=== PATIENT | male | born 1970 | race African-American/Black ===

== ENCOUNTER 2018-02-16 03:58 | Inpatient (IN) | payer OTHER ==
[~2018-02-16] VITALS: Ht 165.1 cm; Wt 91.6 kg
--- NOTE | ~2018-02-16 | EKG ---
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
--- NOTE | ~2018-02-16 | PATH ---
[facility] [address] [place] [address] PATHOLOGY RPT PROCEDURE Name: SOLOMON ECHEVERRIA Room #: 220-P ADM IN M.R.#: [id number] Admission: 02/16/18 Date of : 74 Discharge: Report #: [id number] Path Case #: [id number] [facility] Accession Number: [id number] . 01 Material submitted: . GALLBLADDER . 01 Clinical history: . Biliary dyskinesia, esophagitis . 02 Diagnosis: Gallbladder, cholecystectomy: - Mild chronic cholecystitis. - Cholesterolosis. (IUV:pit; 02/21/2018) QTP/02/21/2018 . 02 Electronically signed: . Giulia Farfan MD, Pathologist NPI- [id number] . 01 Gross description: . The specimen is received in formalin, labeled "Solomon Echeverria, gallbladder" and consists of a previously opened green and shiny gallbladder measuring 8.0 x 3.8 x 0.6 cm. The mucosa is green and velvety with focal yellow highlights in the neck aspect. The wall averages 0.2 cm thick. No calculi or mass lesions are identified. Senior Data Architect sections are submitted in A1. (SDY; 02/20/2018) SYU/SYU . 02 Pathologist provided ICD-10: K81.1, K82.4 . 02 CPT . 395119 Performed at: [address], [place] [id number] MD Leroy Dobson MD Phone: [phone] Performed at: [address] [id number] MD Giulia Farfan MD Phone: [phone]
--- NOTE | ~2018-02-16 | HC ---
[facility] [place] [address] CONSULTATION Name: SEAN ECHEVERRIA Room #: 428-P [facility] IN .R.#: [id number] Admission: 02/16/18 Attend Phys: Carlos Bryant MD Discharge: Date of : 74 Report #: [id number] THIS REPORT FOR: //name// CC: FAM unknown Carlos Bryant DATE OF SERVICE: 02/16/2018 REFERRING PROVIDER: Carlos Bryant MD REASON FOR CONSULT: Abdominal pain. HISTORY OF PRESENT ILLNESS: The patient is a 47-year-old male who presented to the Emergency Room with a longstanding history of GERD and a 24-hour history of epigastric to right upper quadrant abdominal pain and nausea. The patient remembers eating fish with near immediate onset of symptoms. Workup in the Emergency Room has been largely negative with the exception of his CT scan showing marked thickening of the distal esophagus as well as fluid filled loops of small bowel and mesenteric adenopathy. He did have mild ascites on an ultrasound with a normal gallbladder visualization. The patient has therefore been admitted and I am asked to evaluate from a surgical standpoint. PAST MEDICAL HISTORY: Hypertension, depression, asthma and GERD. HOME MEDICATIONS: Clonazepam, Prozac and Zantac. He recently quit taking Seroquel. ALLERGIES: No known drug allergies. SOCIAL HISTORY: The patient is a former smoker, states that he quit greater than 1 year ago. Does drink alcohol, one glass of wine a couple times a week and denies illicit drug use. FAMILY HISTORY: Reviewed and noncontributory. REVIEW OF SYSTEMS: GENERAL: The patient denies nocturnal fevers or chills. HEENT: No change in vision, change in hearing. NECK: No swelling or difficulty swallowing. HEART: No chest pain or palpitations. LUNGS: No cough or shortness of breath. ABDOMEN: Abdominal pain with nausea. GENITOURINARY: No dysuria or hematuria. ENDOCRINE: No polyuria, polydipsia. HEMATOLOGIC: No history of bleeding or easy bruising. EXTREMITIES: No history weakness or limited range of motion. [facility] [address] [address] CONSULTATION Name: SEAN ECHEVERRIA Room #: 428-P [facility] IN M.R.#: [id number] Admission: 02/16/18 Attend Phys: Carlos Bryant MD Discharge: Date of : 74 Report #: [id number] NEUROLOGIC: No history of syncope or near syncopal episodes. SKIN AND INTEGUMENT: No history of abnormal lesions or moles. PSYCHIATRIC: No history of anxiety, but he does have a history of depression. PHYSICAL EXAMINATION: VITAL SIGNS: Temperature is 98.9, pulse 60, respirations 18, blood pressure 116/87. He is 5 feet 5 inches tall and weighs 202 pounds. GENERAL: Alert, in no acute distress. HEENT: Normocephalic, atraumatic. Pupils equal, round, reactive to light. NECK: Supple without lymphadenopathy. Trachea midline. HEART: Regular rate and rhythm. LUNGS: Clear to auscultation bilaterally. ABDOMEN: Soft, nondistended. He is tender to palpation in the epigastrium, worse than the right upper quadrant, but did not have any guarding, rebound or peritoneal signs or symptoms. GENITOURINARY: Normal external male genitalia. EXTREMITIES: No clubbing, cyanosis or edema. NEUROLOGIC: Cranial nerves 2-12 are grossly intact. PSYCHIATRIC: Normal mood and affect. SKIN AND INTEGUMENT: No abnormal lesions or moles. LABORATORY AND X-RAY DATA: CBC shows white blood cell count of 6.2 thousand, hemoglobin 13.6, platelets 227,000. Creatinine 1.1. Liver function enzymes are all normal. Lipase is normal at 144. Chest x-ray shows no cardiopulmonary process. Ultrasound of the abdomen shows questionable mild right upper quadrant ascites, but a normal gallbladder. CT scan of the abdomen and pelvis as per HPI shows thickened distal esophagus consistent with esophagitis. He also has fluid filled loops of small bowel and mesenteric adenitis. ASSESSMENT AND PLAN: A 47-year-old male with acute onset epigastric to right upper quadrant abdominal pain and a negative workup thus far except for findings of esophagitis and possible enteritis. The patient has been admitted and we will keep him largely n.p.o. with clear liquids being okay and IV fluid rehydration. I will ask Gastroenterology to evaluate for the possible esophagitis and we will initiate PPI therapy and Carafate as well at this time. I will also obtain a PIPIDA scan to evaluate for gallbladder dysfunction. I sincerely appreciate this consult. I will follow along and leave any further recommendations in the patient's chart as appropriate. <ELECTRONICALLY SIGNED> By: Yesika Irwin MD, FACS 02/18/18 1659 1122 2256 Yesika Irwin MD, FACS /nt
--- NOTE | ~2018-02-16 | EKG ---
[address] [address] ELECTROCARDIOGRAM REPORT Name: DARLYN ECHEVERRIANE Room #: 428-P ADM IN M.R.#: [id number] Admission: 02/16/18 Attend Phys: Carlos Bryant MD Discharge: Date of : 74 Report #: [id number] THIS REPORT FOR: //name// [facility] ED Test Date: 2018-02-16 Test Time: 04:13:55 Pat Name: SEAN ECHEVERRIA Department: Room: Gender: M Superintendent Operating: melinda : 1970 Requested By: Arsen Javier Order Number: [id number] MD: Bill Hope Measurements Intervals [place] Rate: 71 P: 10 WI: 156 QRS: 17 QRSD: 99 T: -9 QT: 374 QTc: 407 Interpretive Statements Sinus rhythm Nonspecific T abnormalities, inferior leads No previous ECG available for comparison Electronically Signed On 02-16-2018 11:39:08 CDT by Bill Hope [email or web address] <ELECTRONICALLY SIGNED> By: Bill Hope MD 02/16/18 1139 0413 041 Bill Hope MD /ANGELLA
--- NOTE | ~2018-02-16 | HC ---
[facility] [place] [address] CONSULTATION Name: SEAN ECHEVERRIA Room #: 220-P [facility] IN M.R.#: [id number] Admission: 02/16/18 Attend Phys: Carlos Bryant MD Discharge: Date of : 74 Report #: [id number] THIS REPORT FOR: //name// CC: FAM unknown Carlos Bryant HISTORY OF PRESENT ILLNESS: The patient is a 47-year-old black male who I have been asked to see for further evaluation of right upper quadrant abdominal pain, which is postprandial, which began with a fatty meal and was associated with radiation to his right scapula as well as his right and left shoulder. This pain has been recurrent with p.o. ingestion and he has limited his diet accordingly to avoid the pain. PAST MEDICAL HISTORY: Notable for depression, anxiety, obesity, gastroesophageal reflux, peptic ulcer disease, hypertension. MEDICATIONS: Include clonazepam, fluoxetine and ranitidine. SOCIAL HISTORY: Past smoking history. No drugs. He drinks alcohol socially. REVIEW OF SYSTEMS: Negative for weight loss, weakness or fatigue. Denies head, eyes, ears, nose or throat complaints. Denies chest pain, chest palpitation, chest pressure, cough, shortness of breath, wheezing, genitourinary, musculoskeletal or neuropsychiatric complaints. PHYSICAL EXAMINATION: VITAL SIGNS: Afebrile. Vital signs stable. HEENT: Nonicteric. NECK: No JVD, thyromegaly or bruits. CARDIOVASCULAR: Regular. LUNGS: Clear. ABDOMEN: Soft, nondistended, nontender except for in the right upper quadrant, particularly with deep inspiration. No rebound or guarding. No stigmata of chronic liver disease. No abnormal masses or bruits. EXTREMITIES: No clubbing, cyanosis or edema. NEUROLOGIC: Not performed. RECTAL: Deferred. PERTINENT LABORATORY DATA: Include white count 6.2, hemoglobin 13.6, platelet count 227. INR not done. Chemistry, venous bicarbonate 20, glucose 114, calcium 8.4. AST and ALT are normal. Alkaline phosphatase normal. Bilirubin normal. Amylase and lipase are normal. Imaging studies reveal abdominal ultrasound without stone or evidence of cholecystitis or dilated ducts. CT scan notable for abdomen and pelvis, thickened esophagus, possibly secondary to reflux, some fluid filled small bowel loops may be representing a mild ileus. No obstruction, some small lymphadenopathy and nonvisualization of the appendix. [address] [address] CONSULTATION Name: SEAN ECHEVERRIA Room #: 220-P ADM IN M.R.#: [id number] Admission: 02/16/18 Attend Phys: Carlos Bryant MD Discharge: Date of : 74 Report #: [id number] In summary, the patient has biliary colic, most likely secondary to acalculous cholecystitis. We will proceed with the CCK PIPIDA scan, especially looking for symptom correlation and reduced ejection fraction. I do agree with the surgical consult. If indeed his PIPIDA scan is positive, upper endoscopy would not be necessary. I do agree with PPI therapy empirically. We will follow up. <ELECTRONICALLY SIGNED> By: Nathan Finnegan MD 02/20/18 1013 1005 2214 Palmer Thomas MD /nt
--- NOTE | ~2018-02-16 | O ---
[facility] [place] [address] OPERATIVE REPORT Name: SEAN ECHEVERRIA Room #: 220-P [facility] IN M.R.#: [id number] Admission: 02/16/18 Attend Phys: Carlos Bryant MD Discharge: Date of : 74 Report #: [id number] THIS REPORT FOR: //name// CC: FAM unknown Carlos Bryant DATE OF SERVICE: 02/20/2018 PREOPERATIVE DIAGNOSES: 1. Biliary dyskinesia. 2. Esophageal thickening and inflammation. POSTOPERATIVE DIAGNOSES: 1. Chronic cholecystitis with cholesterolosis. 2. Normal esophageal tissues. PROCEDURES PERFORMED: 1. Laparoscopic cholecystectomy with intraoperative cholangiogram. 2. Thorough esophagogastroduodenoscopy (EGD). SURGEON: Yesika Irwin MD MUFFLER TENDER: TANVIR Lockett. ANESTHESIA: General endotracheal anesthesia. ESTIMATED BLOOD LOSS: Minimal (less than 5 mL). COMPLICATIONS: None appreciated. SPECIMENS: Gallbladder to pathology. INDICATIONS: The patient is a 47-year-old male who presented with worsening epigastric right upper quadrant abdominal pain and nausea. The patient was evaluated with a CT scan of the abdomen and pelvis as well as ultrasound of the abdomen, which showed no overt findings other than a thickened distal esophagus. The patient then underwent a PIPIDA scan, which showed decreased ejection fraction to 16% with reproduction of symptoms upon injection of cholecystokinin and as such, indication was for cholecystectomy today. As the patient was to be under a general anesthesia, an EGD was performed concurrently to evaluate the upper GI tract with no evidence of esophageal or gastric inflammation whatsoever. PROCEDURE: After explaining the risks, benefits and alternatives of the procedure with the patient in detail in the preoperative holding area and obtaining written consent, the patient was brought to the operating room and [facility] [address] [place] [address] OPERATIVE REPORT Name: SEAN ECHEVERRIA Room #: 220-P [facility] IN ..#: [id number] Admission: 02/16/18 Attend Phys: Carlos Bryant MD Discharge: Date of : 74 Report #: [id number] placed supine on the operating room table. After conducting a thorough timeout procedure, verifying correct patient and procedure, the patient was given general endotracheal anesthesia. Once adequate anesthesia was obtained, his SCDs were hooked up to pneumatic compression device. He was given a preoperative dose of antibiotics in line with the SCIP protocol. The patient's abdomen was then prepped and draped in standard surgical sterile fashion. I began the procedure by performing the EGD. The [place]wl[place] upper endoscope was used to intubate the oropharynx. This was traversed down a straight esophagus into the gastric lumen where the pylorus was identified and intubated. The scope was advanced to the second portion of the duodenum where slow careful withdrawal of the EGD scope showed no evidence of duodenitis, gastritis, esophagitis, mass lesions, or ulcerations. Retroflexion view of the scope within the gastric lumen showed no evidence of a hiatal hernia. The scope was withdrawn into the distal esophagus where it was thoroughly inspected and again saw no evidence of pathology whatsoever. There was no hyperemia, no cellular changes and the Z-line was identified and uninflamed. The EGD scope was used to fully desufflate the stomach, was removed, passed off the field and I sterilely scrubbed and entered the operative field for the cholecystectomy portion of the procedure. 5 mL of 0.5% Marcaine with epinephrine were used to anesthetize the skin in the supraumbilical location. A #15 bladed scalpel was used to create a 1-cm transverse skin incision at this location. An 11-mm Visiport was placed over 0 degree 5 mm laparoscope, which was reintroduced through this trocar. The entire abdomen was evaluated to ensure no injury upon entry. The laparoscope was changed to a 5-mm 30-degree laparoscope, which was reintroduced through this trocar. The entire abdomen was evaluated to ensure no injury upon entry. The patient was now placed in reverse Trendelenburg position with right side elevated and I proceeded to place three additional 5-mm trocars. One was placed in subxiphoid location and two were placed along the patient's right subcostal margin. All three additional 5-mm ports were placed under direct vision after anesthetizing the skin at each location with 5 mL of 0.5% Marcaine with epinephrine and I had created small skin nicks using #15 bladed scalpel. Using the inferolateral most port along the patient's right flank, the fundus of the gallbladder was grasped and retracted cephalad. Careful tedious dissection was undertaken down around the cholecystocystic junction using a combination of Harmonic scalpel and [place] dissector. Once I had attained a critical view, namely the cystic duct emanating from the infundibulum of the gallbladder and coursing the common bile duct as well as cystic artery running the surface of the gallbladder and I had created a window behind each, I transected the cystic artery nearest to the gallbladder side using Harmonic scalpel for hemostasis. A single clip was now placed along the cystic duct nearest to the gallbladder side and a small ductotomy was made just distal to this clip using EndoShears. This ductotomy was cannulated using the taut cholangiocatheter setup and an intraoperative cholangiogram was obtained. We had prompt opacification of a long spiraling cystic duct with both intra and extrahepatic bile ducts becoming opacified. There was antegrade flow of contrast into the duodenum with no evidence of filling defects or obstruction. The cholangiocatheter setup was now [facility] [address] [place] [address] OPERATIVE REPORT Name: SEAN ECHEVERRIA Room #: 220-P ADM IN M.R.#: [id number] Admission: 02/16/18 Attend Phys: Carlos Bryant MD Discharge: Date of : 74 Report #: [id number] removed, 3 clips were placed along the cystic duct nearest to the common bile duct side and it was transected above these clips using Harmonic scalpel to help seal the duct closed. Further retraction at the infundibulum of the gallbladder in cephalad direction allowed me to elevate the gallbladder off of the liver bed using Harmonic scalpel for hemostasis. Once completely detached, the laparoscope was removed, changed to the right midclavicular 5-mm trocar, and the EndoCatch bag was placed in supraumbilical trocar. The specimen was placed within the EndoCatch bag and the pursestring suture was drawn. The specimen was then removed from the abdomen under direct vision with ease. I then closed the supraumbilical fascial incision using 0 PDS suture on a Sandoval-Mora suture passer device and tied this down under direct vision to ensure I did not catch a loop of bowel or omentum in the suture repair. One final evaluation of the gallbladder fossa showed complete hemostasis with no bleeding whatsoever. We had no spillage. The three clips were seated nicely on the cystic duct stump remnant. The abdomen was fully desufflated, all remaining trocars were removed under direct vision. A 4-0 Monocryl was used in a standard subcuticular fashion for all skin incisions and Dermabond glue was applied to all skin wounds. The corner of the resection specimen that had been removed was trimmed away as the gallbladder was on the back table showing significant findings of a thick inspissated bile and sludge as well as marked cholesterolosis consistent with chronic cholecystitis. At the end of the procedure, all instrument, needle and sponge counts were correct. The patient tolerated the procedure without incident, was awakened in the operating room and transitioned to the recovery room in stable condition with no apparent complications. <ELECTRONICALLY SIGNED> By: Yesika Irwin MD, FACS 02/21/18 0738 1710 1842 Yesika Irwin MD, FACS /nt
[~2018-02-16 03:58] MED LIST: CLONAZEPAM 1 MG1 M1; FLEXERIL PO; NAPROSYN500 MG PO; NORCO 5-325 TA1 EACH PO; PROZAC 10 MG CA10 MG; SEROQUEL 100 M100 M1
[2018-02-16 04:05] VITALS: BP 138/102
[2018-02-16] MEDS ORDERED: ZANTAC 150MG T150 MG PO (04:10)
[2018-02-16 04:41] LABS: ABSOLUTE NEUTROPHILS 3.4 thou/uL (1.4-8.2); BASOPHILS 0.5 % (0.0-2.0); EOSINOPHILS 2.3 % (0.0-3.0); HEMATOCRIT 41.1 % (42.0-52.0); HEMOGLOBIN 13.6 gm/dL (14.0-18.0); LYMPHOCYTES 33.5 % (24.0-44.0); MCH 28.3 pg (26.0-34.0); MCHC 33.1 g/dL (28.0-37.0); MCV 85.5 fL (80.0-100.0); MONOCYTES 8.1 % (1.0-8.0); PLATELET COUNT 227 thou/uL (150-400); POLYS 55.6 % (36.0-66.0); RBC 4.81 mil/uL (4.50-6.00); WBC 6.2 thou/uL (4.0-11.0)
[2018-02-16 04:49] LABS: ANION GAP 8 mmol/L (7-16); BUN 20 mg/dL (7-18); CALCIUM 8.4 mg/dL (8.5-10.1); CHLORIDE 107 mmol/L (98-107); CO2 27 mmol/L (21-32); CREATININE 1.1 mg/dL (0.7-1.3); GLUCOSE 114 mg/dL (74-106); POTASSIUM 3.5 mmol/L (3.5-5.1); SODIUM 142 mmol/L (136-145)
[2018-02-16 04:57] LABS: ALBUMIN 3.4 g/dL (3.4-5.0); LIPASE 144 U/L (73-393); SGOT 16 U/L (15-37); SGPT 24 U/L (30-65); TOTAL BILIRUBIN 0.4 mg/dL (<0.1-1.0); TOTAL PROTEIN 6.8 g/dL (6.4-8.2); TROPONIN-I < 0.04 ng/mL (<0.06)
[2018-02-16] MEDS ORDERED: NORCO 5-325 TA1 EACH PO (05:59)
[2018-02-16] MEDS ORDERED: PEPCID20 MG PO (05:59)
[2018-02-16] MEDS ORDERED: CIPROFLOXACIN500 M1 PO (05:59)
[2018-02-16] MEDS ORDERED: FLAGYL500 MG PO (05:59)
[2018-02-16 06:19] VITALS: BP 139/91
[2018-02-16 07:22] VITALS: BP 127/90
[2018-02-16 15:47] VITALS: BP 116/87
[2018-02-16 20:00] VITALS: BP 112/68
[2018-02-17 04:00] VITALS: BP 127/91
[2018-02-17 04:59] LABS: HEMATOCRIT 41.5 % (42.0-52.0); HEMOGLOBIN 13.9 gm/dL (14.0-18.0); MCH 28.6 pg (26.0-34.0); MCHC 33.4 g/dL (28.0-37.0); MCV 85.6 fL (80.0-100.0); RBC 4.85 mil/uL (4.50-6.00); RDW 14.1 % (10.5-14.5)
[2018-02-17 05:10] LABS: CALCIUM 8.4 mg/dL (8.5-10.1); CREATININE 1.1 mg/dL (0.7-1.3); POTASSIUM 3.4 mmol/L (3.5-5.1)
[2018-02-17 08:24] LABS: MAGNESIUM 1.9 mg/dL (1.8-2.4)
[2018-02-17 08:34] VITALS: BP 117/85
[2018-02-17 16:01] VITALS: BP 125/81
[2018-02-17 21:00] VITALS: BP 124/82; BP 128/78
[2018-02-18 06:04] LABS: ABSOLUTE NEUTROPHILS 2.8 thou/uL (1.4-8.2); BASOPHILS 0.5 % (0.0-2.0); EOSINOPHILS 1.7 % (0.0-3.0); HEMATOCRIT 40.4 % (42.0-52.0); HEMOGLOBIN 13.6 gm/dL (14.0-18.0); LYMPHOCYTES 31.7 % (24.0-44.0); MCH 28.7 pg (26.0-34.0); MCHC 33.6 g/dL (28.0-37.0); MCV 85.5 fL (80.0-100.0); MONOCYTES 9.1 % (1.0-8.0); PLATELET COUNT 217 thou/uL (150-400); RBC 4.73 mil/uL (4.50-6.00); RDW 13.9 % (10.5-14.5); WBC 4.9 thou/uL (4.0-11.0)
[2018-02-18 06:14] LABS: ALBUMIN 3.1 g/dL (3.4-5.0); CALCIUM 8.2 mg/dL (8.5-10.1); CREATININE 1.1 mg/dL (0.7-1.3); DIRECT BILIRUBIN 0.1 mg/dL (<0.1-0.3); MAGNESIUM 2.1 mg/dL (1.8-2.4); POTASSIUM 3.6 mmol/L (3.5-5.1); TOTAL BILIRUBIN 0.6 mg/dL (<0.1-1.0); TOTAL PROTEIN 6.6 g/dL (6.4-8.2)
[2018-02-18 15:12] VITALS: BP 111/77
[2018-02-18 19:27] VITALS: BP 126/82; BP 129/82
[2018-02-19 03:51] VITALS: BP 122/83
[2018-02-19 05:46] LABS: ABSOLUTE NEUTROPHILS 2.1 thou/uL (1.4-8.2); BASOPHILS 0.5 % (0.0-2.0); EOSINOPHILS 2.8 % (0.0-3.0); HEMATOCRIT 39.4 % (42.0-52.0); HEMOGLOBIN 13.3 gm/dL (14.0-18.0); LYMPHOCYTES 36.1 % (24.0-44.0); MCH 28.9 pg (26.0-34.0); MCHC 33.8 g/dL (28.0-37.0); MCV 85.3 fL (80.0-100.0); MONOCYTES 10.8 % (1.0-8.0); PLATELET COUNT 243 thou/uL (150-400); POLYS 49.8 % (36.0-66.0); RBC 4.62 mil/uL (4.50-6.00); RDW 13.9 % (10.5-14.5); WBC 4.3 thou/uL (4.0-11.0)
[2018-02-19 06:03] LABS: CALCIUM 8.4 mg/dL (8.5-10.1); CREATININE 1.2 mg/dL (0.7-1.3); POTASSIUM 3.8 mmol/L (3.5-5.1)
[2018-02-19 08:04] VITALS: BP 132/94
[2018-02-19 16:52] VITALS: BP 142/95
[2018-02-19 19:32] VITALS: BP 122/85
[2018-02-20 07:15] VITALS: BP 124/91
[2018-02-20 11:31] VITALS: BP 134/91
[2018-02-20 11:32] VITALS: BP 146/96
[2018-02-20 11:33] VITALS: BP 156/102; BP 158/103
[2018-02-20 11:35] VITALS: BP 146/99
[2018-02-20 20:00] VITALS: BP 109/74
[2018-02-21 04:38] LABS: URINE BILIRUBIN NEGATIVE (Negative); URINE BLOOD NEGATIVE (Negative); URINE CLARITY CLEAR; URINE COLOR YELLOW; URINE GLUCOSE-RANDOM* TRACE (Negative); URINE KETONES NEGATIVE (Negative); URINE LEUKOCYTES-REFLEX NEGATIVE (Negative); URINE NITRITE-REFLEX NEGATIVE (Negative); URINE PROTEIN (DIPSTICK) 1+ (Negative); URINE SPECIFIC GRAVITY 1.015 (1.005-1.035); URINE UROBILINOGEN 0.2 E.U./dl (0.2-1.0)
[2018-02-21 04:45] LABS: BACTERIA-REFLEX 1-9 Few /HPF (None Seen); CASTS None Seen /LPF (None Seen); CRYSTALS None Seen /LPF (None Seen); SQUAMOUS 0-3 Few /LPF (0-3); TRANSITIONAL EPITHEL CELL 0-3 Few /LPF (None Seen); URINE RBC None Seen /HPF (0-2); URINE WBC-REFLEX None Seen /HPF (0-5)
[2018-02-21 07:05] VITALS: BP 116/73
[2018-02-21 07:16] LABS: ABSOLUTE NEUTROPHILS 3.6 thou/uL (1.4-8.2); BASOPHILS 0.3 % (0.0-2.0); EOSINOPHILS 0.7 % (0.0-3.0); HEMATOCRIT 40.8 % (42.0-52.0); HEMOGLOBIN 13.6 gm/dL (14.0-18.0); LYMPHOCYTES 29.6 % (24.0-44.0); MCH 28.2 pg (26.0-34.0); MCHC 33.2 g/dL (28.0-37.0); MCV 84.9 fL (80.0-100.0); MONOCYTES 9.2 % (1.0-8.0); PLATELET COUNT 259 thou/uL (150-400); POLYS 60.2 % (36.0-66.0); RDW 13.8 % (10.5-14.5); WBC 5.9 thou/uL (4.0-11.0)
[2018-02-21 07:25] LABS: CALCIUM 8.6 mg/dL (8.5-10.1); CREATININE 1.3 mg/dL (0.7-1.3); POTASSIUM 3.5 mmol/L (3.5-5.1)
[2018-02-21 20:10] VITALS: BP 120/86
[2018-02-22 08:01] VITALS: BP 156/102
[2018-02-22] MEDS ORDERED: HYDROCODON-ACE1 EAC7 PO (14:24)
[2018-02-22] MEDS ORDERED: PROTONIX 20 MG20 MG PO (14:24)
[2018-02-22] MEDS ORDERED: CARAFATE 11 GM/10 M1 PO (14:24)
[2018-02-22] MEDS ORDERED: FLOMAX0.4 MG PO (14:24)
[2018-02-22 14:35] VITALS: BP 156/102
== END 2018-02-22 14:53 | disposition home or self-care (01) | DRG 418 ==
LOC: ER 03:58 → 4E 06:22 → EROBS 06:22 → 4E 07:29 → SICU 02-19 16:31
PROVIDERS: Emergency Medicine; Hospitalist; Nurse Practitioner Acute Care; Surgery
PROC: 0FT44ZZ Resection of Gallbladder, Percutaneous Endoscopic Approach (ICD-10-PCS; principal; 2018-02-20)
PROC: BF121ZZ Fluoroscopy of Gallbladder using Low Osmolar Contrast (ICD-10-PCS; principal; 2018-02-20)
DX: K80.44 Calculus of bile duct with chronic cholecystitis without obstruction (principal); E44.1 Mild protein-calorie malnutrition; J98.11 Atelectasis; K20.9 Esophagitis, unspecified; K82.8 Other specified diseases of gallbladder; I10 Essential (primary) hypertension; J45.909 Unspecified asthma, uncomplicated; F32.9 Major depressive disorder, single episode, unspecified; F41.9 Anxiety disorder, unspecified; E66.9 Obesity, unspecified; K21.9 Gastro-esophageal reflux disease without esophagitis; R73.03 Prediabetes; E86.0 Dehydration; R13.10 Dysphagia, unspecified; I88.0 Nonspecific mesenteric lymphadenitis; R33.9 Retention of urine, unspecified; Z79.899 Other long term (current) drug therapy; Z87.891 Personal history of nicotine dependence; Z68.33 Body mass index [BMI] 33.0-33.9, adult; Z87.11 Personal history of peptic ulcer disease
CPT/HCPCS: 10084; 15002; 50010; 50101; 50249; 50411; 50555; 50558; 50962; 51975; 52265; 53307; 54022; 54118; 55245; 55317; 56462; 56525; 56526; 62110; 62900; 70005

== ENCOUNTER 2018-02-26 22:22 | Emergency (ER) | payer OTHER ==
[~2018-02-26] VITALS: Ht 165.1 cm; Wt 91.6 kg
[~2018-02-26 22:22] MED LIST changes: +CARAFATE 11 GM/10 M1 PO; +CIPROFLOXACIN500 M1 PO; +FLAGYL500 MG PO; +FLOMAX0.4 MG PO; +HYDROCODON-ACE1 EAC7 PO; +PEPCID20 MG PO; +PROTONIX 20 MG20 MG PO; +ZANTAC 150MG T150 MG PO
[2018-02-26 22:51] LABS: ABSOLUTE NEUTROPHILS 2.2 thou/uL (1.4-8.2); BASOPHILS 0.7 % (0.0-2.0); EOSINOPHILS 2.3 % (0.0-3.0); HEMATOCRIT 41.8 % (42.0-52.0); HEMOGLOBIN 13.8 gm/dL (14.0-18.0); LYMPHOCYTES 40.4 % (24.0-44.0); MCH 28.4 pg (26.0-34.0); MCHC 33.1 g/dL (28.0-37.0); MCV 85.6 fL (80.0-100.0); MONOCYTES 10.1 % (1.0-8.0); PLATELET COUNT 257 thou/uL (150-400); POLYS 46.5 % (36.0-66.0); RBC 4.88 mil/uL (4.50-6.00); RDW 13.8 % (10.5-14.5); WBC 4.7 thou/uL (4.0-11.0)
[2018-02-26 22:57] LABS: CALCIUM 8.9 mg/dL (8.5-10.1); CREATININE 1.1 mg/dL (0.7-1.3); POTASSIUM 3.4 mmol/L (3.5-5.1)
[2018-02-26 23:03] LABS: ALBUMIN 3.4 g/dL (3.4-5.0); TOTAL BILIRUBIN 0.3 mg/dL (<0.1-1.0); TOTAL PROTEIN 7.1 g/dL (6.4-8.2)
[2018-02-26 23:26] LABS: URINE BILIRUBIN NEGATIVE (Negative); URINE BLOOD NEGATIVE (Negative); URINE CLARITY CLEAR; URINE COLOR YELLOW; URINE GLUCOSE-RANDOM* NEGATIVE (Negative); URINE KETONES NEGATIVE (Negative); URINE LEUKOCYTES-REFLEX NEGATIVE (Negative); URINE NITRITE-REFLEX NEGATIVE (Negative); URINE PROTEIN (DIPSTICK) NEGATIVE (Negative); URINE UROBILINOGEN 0.2 E.U./dl (0.2-1.0)
[2018-02-27] MEDS ORDERED: HYDROCODONE-AP1 EAC6 PO (00:33)
== END 2018-02-27 00:59 | disposition home or self-care (01) ==
LOC: ER 22:22
PROVIDERS: Physician Assistant
DX: S39.81XA Other specified injuries of abdomen, initial encounter (principal); R33.9 Retention of urine, unspecified; I10 Essential (primary) hypertension; J45.909 Unspecified asthma, uncomplicated; F32.9 Major depressive disorder, single episode, unspecified; Z87.891 Personal history of nicotine dependence; Z90.49 Acquired absence of other specified parts of digestive tract; W19.XXXA Unspecified fall, initial encounter; Y93.89 Activity, other specified; Y92.89 Other specified places as the place of occurrence of the external cause; Y99.8 Other external cause status

== ENCOUNTER 2018-04-15 03:17 | Emergency (ER) | payer OTHER ==
[~2018-04-15] VITALS: Ht 165.1 cm; Wt 90.7 kg
--- NOTE | ~2018-04-15 | EKG ---
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: melinda : 1970 Requested By: Shelly Nielson Order Number: [id number] MD: Michael Taveras Measurements Intervals [place] Rate: 61 P: 14 OK: 155 QRS: 13 QRSD: 97 T: -12 QT: 405 QTc: 408 Interpretive Statements Sinus rhythm Borderline T abnormalities, inferior leads Compared to ECG 02/17/2018 13:34:55 No significant changes Electronically Signed On 04-15-2018 8:45:59 CDT by Michael Taveras [email or web address] <ELECTRONICALLY SIGNED> By: Michael Taveras MD, [facility] 04/15/18 0845 0542 0542 Michael Taveras MD, FACC /EPI
--- NOTE | ~2018-04-15 | EKG ---
[place] [address] [facility] [place] [address] ELECTROCARDIOGRAM REPORT Name: SEAN ECHEVERRIA Room #: DEP Sunni#: [id number] Admission: 04/15/18 Attend Phys: Discharge: 04/15/18 Date of : 74 Report #: [id number] THIS REPORT FOR: //name// [facility] ED Test Date: 2018-04-15 Test Time: 03:37:41 Pat Name: ESAN ECHEVERRIA Department: Room: Gender: Rn Renal: Irena FLOREZ : 1970 Requested By: Shelly Nielson Order Number: [id number] MD: Michael Taveras Measurements Intervals [place] Rate: 72 P: 20 UT: 158 QRS: 22 QRSD: 95 T: -1 QT: 382 QTc: 419 Interpretive Statements Sinus rhythm Borderline T abnormalities, inferior leads Compared to ECG 02/17/2018 13:34:55 No significant changes Electronically Signed On 04-15-2018 8:45:46 CDT by Michael Taveras [email or web address] <ELECTRONICALLY SIGNED> By: Michael Taveras MD, [facility] 04/15/18 0845 0337 6 Michael Taveras MD, FACC /EPI
[~2018-04-15 03:17] MED LIST changes: +HYDROCODONE-AP1 EAC6 PO
[2018-04-15 04:04] LABS: ABSOLUTE NEUTROPHILS 2.7 thou/uL (1.4-8.2); BASOPHILS 0.9 % (0.0-2.0); EOSINOPHILS 1.6 % (0.0-3.0); HEMATOCRIT 40.2 % (42.0-52.0); HEMOGLOBIN 13.5 gm/dL (14.0-18.0); LYMPHOCYTES 41.8 % (24.0-44.0); MCH 28.7 pg (26.0-34.0); MCHC 33.7 g/dL (28.0-37.0); MCV 85.3 fL (80.0-100.0); MONOCYTES 9.2 % (1.0-8.0); PLATELET COUNT 210 thou/uL (150-400); POLYS 46.5 % (36.0-66.0); RBC 4.72 mil/uL (4.50-6.00); RDW 13.7 % (10.5-14.5); WBC 5.9 thou/uL (4.0-11.0)
[2018-04-15 04:10] LABS: ANION GAP 10 mmol/L (7-16); BUN 13 mg/dL (7-18); CALCIUM 8.5 mg/dL (8.5-10.1); CHLORIDE 106 mmol/L (98-107); CO2 26 mmol/L (21-32); GLUCOSE 141 mg/dL (74-106); POTASSIUM 3.6 mmol/L (3.5-5.1); SODIUM 142 mmol/L (136-145)
[2018-04-15 04:19] LABS: TROPONIN-I <0.06 ng/mL (<0.06)
[2018-04-15] MEDS ORDERED: IBUPROFEN 800800 MG PO (05:17)
== END 2018-04-15 06:29 | disposition home or self-care (01) ==
LOC: ER 03:17
PROVIDERS: Emergency Medicine
DX: G44.209 Tension-type headache, unspecified, not intractable (principal); M54.12 Radiculopathy, cervical region; R20.2 Paresthesia of skin; I10 Essential (primary) hypertension; J45.909 Unspecified asthma, uncomplicated; F32.9 Major depressive disorder, single episode, unspecified; E11.9 Type 2 diabetes mellitus without complications; G89.29 Other chronic pain; M25.562 Pain in left knee; M25.561 Pain in right knee; Z87.891 Personal history of nicotine dependence

== ENCOUNTER 2018-05-07 20:26 | Emergency (ER) | payer OTHER ==
[~2018-05-07] VITALS: Ht 165.1 cm; Wt 90.7 kg
[~2018-05-07 20:26] MED LIST changes: +IBUPROFEN 800800 MG PO
[2018-05-07] MEDS ORDERED: ELOCON15 GM TOP (21:21)
[2018-05-07] MEDS ORDERED: HYDROXYZINE HCL25 M1 PO (21:21)
== END 2018-05-07 21:39 | disposition home or self-care (01) ==
LOC: ER 20:26
DX: L25.9 Unspecified contact dermatitis, unspecified cause (principal); I10 Essential (primary) hypertension; J45.909 Unspecified asthma, uncomplicated; F32.9 Major depressive disorder, single episode, unspecified; Z87.891 Personal history of nicotine dependence

== ENCOUNTER 2018-06-15 05:12 | Emergency (ER) | payer OTHER ==
[~2018-06-15] VITALS: Ht 165.1 cm; Wt 96.2 kg
[~2018-06-15 05:12] MED LIST changes: +ELOCON15 GM TOP; +HYDROXYZINE HCL25 M1 PO
[2018-06-15] MEDS ORDERED: NORCO 5-325 TA1 EACH PO (05:51)
[2018-06-15] MEDS ORDERED: LIDOCAINE VISC100 ML SWISH&SPIT (05:51)
== END 2018-06-15 06:19 | disposition home or self-care (01) ==
LOC: ER 05:12
DX: S02.5XXA Fracture of tooth (traumatic), initial encounter for closed fracture (principal); I10 Essential (primary) hypertension; J45.909 Unspecified asthma, uncomplicated; F32.9 Major depressive disorder, single episode, unspecified; Z87.891 Personal history of nicotine dependence; X58.XXXA Exposure to other specified factors, initial encounter; Y92.89 Other specified places as the place of occurrence of the external cause; Y93.89 Activity, other specified; Y99.8 Other external cause status

== ENCOUNTER 2018-06-24 23:29 | Emergency (ER) | payer OTHER ==
[~2018-06-24] VITALS: Ht 167.6 cm; Wt 96.2 kg
--- NOTE | ~2018-06-24 | EKG ---
[address] [address] ELECTROCARDIOGRAM REPORT Name: SEAN ECHEVERRIA Room #: DEP Sunni#: [id number] Admission: 06/24/18 Attend Phys: Discharge: 06/25/18 Date of : 74 Report #: [id number] THIS REPORT FOR: //name// [facility] ED Test Date: 2018-06-24 Test Time: 23:33:02 Pat Name: SEAN ECHEVERRIA Department: Room: Gender: M Spin Table Operator: RADHA : 1970 Requested By: Tu Parks Order Number: [id number] MD: Bill Hope Measurements Intervals [place] Rate: 76 P: 14 OR: 151 QRS: 15 QRSD: 102 T: -5 QT: 366 QTc: 412 Interpretive Statements Sinus rhythm Borderline T abnormalities, inferior leads Compared to ECG 04/15/2018 05:42:35 No significant changes Electronically Signed On 06-25-2018 9:55:15 CDT by Bill Hope [email or web address] <ELECTRONICALLY SIGNED> By: Bill Hope MD 06/25/18 0955 32 32 Bill Hope MD /ANGELLA
[~2018-06-24 23:29] MED LIST changes: +LIDOCAINE VISC100 ML SWISH&SPIT
[2018-06-25 00:01] LABS: ABSOLUTE NEUTROPHILS 3.4 thou/uL (1.4-8.2); BASOPHILS 0.8 % (0.0-2.0); EOSINOPHILS 1.4 % (0.0-3.0); HEMATOCRIT 41.6 % (42.0-52.0); HEMOGLOBIN 14.4 gm/dL (14.0-18.0); LYMPHOCYTES 34.7 % (24.0-44.0); MCH 29.1 pg (26.0-34.0); MCHC 34.7 g/dL (28.0-37.0); MCV 83.9 fL (80.0-100.0); PLATELET COUNT 234 thou/uL (150-400); POLYS 55.1 % (36.0-66.0); RBC 4.95 mil/uL (4.50-6.00); RDW 13.1 % (10.5-14.5); WBC 6.2 thou/uL (4.0-11.0)
[2018-06-25 00:04] LABS: ANION GAP 6 mmol/L (7-16); BUN 10 mg/dL (7-18); CALCIUM 8.8 mg/dL (8.5-10.1); CHLORIDE 102 mmol/L (98-107); CO2 29 mmol/L (21-32); CREATININE 1.2 mg/dL (0.7-1.3); POTASSIUM 3.4 mmol/L (3.5-5.1); SODIUM 137 mmol/L (136-145)
[2018-06-25 00:13] LABS: GLUCOSE 166 mg/dL (74-106); TROPONIN-I <0.06 ng/mL (<0.06)
[2018-06-25] MEDS ORDERED: PROZAC10 MG PO (00:49)
[2018-06-25] MEDS ORDERED: CLOZAPINE25 MG PO (00:49)
[2018-06-25] MEDS ORDERED: NEURONTIN 300300 M1 PO (00:50)
[2018-06-25] MEDS ORDERED: LISINOPRIL10 MG PO (00:50)
[2018-06-25] MEDS ORDERED: NITROGLYCERIN0.4 MG SUBLING (00:50)
[2018-06-25] MEDS ORDERED: PROTONIX40 M1 PO (00:50)
[2018-06-25] MEDS ORDERED: CARAFATE 1 GM TA1 G1 PO (00:50)
[2018-06-25] MEDS ORDERED: RANITIDINE HCL300 M1 PO (00:50)
== END 2018-06-25 03:51 | disposition home or self-care (01) ==
LOC: ER 23:29
PROVIDERS: Emergency Medicine
DX: R07.89 Other chest pain (principal); I10 Essential (primary) hypertension; J45.909 Unspecified asthma, uncomplicated; F32.9 Major depressive disorder, single episode, unspecified; Z87.891 Personal history of nicotine dependence

== ENCOUNTER 2018-07-09 20:26 | Emergency (ER) | payer OTHER ==
[~2018-07-09] VITALS: Ht 165.1 cm; Wt 96.2 kg
[~2018-07-09 20:26] MED LIST changes: +CARAFATE 1 GM TA1 G1 PO; +CLOZAPINE25 MG PO; +LISINOPRIL10 MG PO; +NEURONTIN 300300 M1 PO; +NITROGLYCERIN0.4 MG SUBLING; +PROTONIX40 M1 PO; +PROZAC10 MG PO; +RANITIDINE HCL300 M1 PO
[2018-07-09 23:41] LABS: ABSOLUTE NEUTROPHILS 2.9 thou/uL (1.4-8.2); BASOPHILS 0.8 % (0.0-2.0); EOSINOPHILS 2.1 % (0.0-3.0); HEMATOCRIT 40.6 % (42.0-52.0); HEMOGLOBIN 14.2 gm/dL (14.0-18.0); LYMPHOCYTES 39.6 % (24.0-44.0); MCH 29.5 pg (26.0-34.0); MCHC 35.1 g/dL (28.0-37.0); MCV 83.9 fL (80.0-100.0); MONOCYTES 8.2 % (1.0-8.0); PLATELET COUNT 219 thou/uL (150-400); POLYS 49.3 % (36.0-66.0); RBC 4.83 mil/uL (4.50-6.00); RDW 13.2 % (10.5-14.5); WBC 5.9 thou/uL (4.0-11.0)
[2018-07-09 23:48] LABS: ANION GAP 7 mmol/L (7-16); BUN 15 mg/dL (7-18); CALCIUM 8.5 mg/dL (8.5-10.1); CHLORIDE 105 mmol/L (98-107); CO2 30 mmol/L (21-32); GLUCOSE 131 mg/dL (74-106); POTASSIUM 3.8 mmol/L (3.5-5.1); SODIUM 142 mmol/L (136-145)
[2018-07-09 23:57] LABS: TROPONIN-I <0.06 ng/mL (<0.06)
[2018-07-10] MEDS ORDERED: AZITHROMYCIN 2250 MG PO (00:12)
== END 2018-07-10 00:36 | disposition home or self-care (01) ==
LOC: ER 20:26
PROVIDERS: Student in an Organized Health Care Education/Training Program
DX: J20.9 Acute bronchitis, unspecified (principal); E86.0 Dehydration; R33.9 Retention of urine, unspecified; R53.83 Other fatigue; I10 Essential (primary) hypertension; F32.9 Major depressive disorder, single episode, unspecified; J45.909 Unspecified asthma, uncomplicated; Z87.891 Personal history of nicotine dependence

== ENCOUNTER 2019-02-20 02:06 | Emergency (ER) | payer OTHER ==
[~2019-02-20] VITALS: Ht 165.1 cm; Wt 104.3 kg
[~2019-02-20 02:06] MED LIST changes: +AZITHROMYCIN 2250 MG PO
[2019-02-20 02:47] LABS: ABSOLUTE NEUTROPHILS 3.4 thou/uL (1.4-8.2); BASOPHILS 0.6 % (0.0-2.0); EOSINOPHILS 1.7 % (0.0-3.0); HEMATOCRIT 42.7 % (42.0-52.0); HEMOGLOBIN 14.2 gm/dL (14.0-18.0); LYMPHOCYTES 33.4 % (24.0-44.0); MCH 28.1 pg (26.0-34.0); MCHC 33.2 g/dL (28.0-37.0); MCV 84.6 fL (80.0-100.0); MONOCYTES 8.4 % (1.0-8.0); PLATELET COUNT 230 thou/uL (150-400); POLYS 55.9 % (36.0-66.0); RBC 5.04 mil/uL (4.50-6.00); RDW 13.7 % (10.5-14.5); WBC 6.1 thou/uL (4.0-11.0)
[2019-02-20 02:51] LABS: ANION GAP 7 mmol/L (7-16); BUN 13 mg/dL (7-18); CALCIUM 8.3 mg/dL (8.5-10.1); CHLORIDE 105 mmol/L (98-107); CO2 28 mmol/L (21-32); GLUCOSE 150 mg/dL (74-106); POTASSIUM 3.5 mmol/L (3.5-5.1); SODIUM 140 mmol/L (136-145)
[2019-02-20 03:00] LABS: TROPONIN-I <0.06 ng/mL (<0.06)
[2019-02-20] MEDS ORDERED: FLEXERIL PO (03:28)
[2019-02-20 04:10] VITALS: BP 145/98
--- NOTE | 2019-02-20 07:33 | EKG ---
[address] [place] [address] ELECTROCARDIOGRAM REPORT Name: JUWANSEAN Room #: DEP MILLY Moeller#: [id number] ������������������ Admission: 02/20/19 ������������������ Attend Phys: Discharge: 02/20/19 ������������������ Date of : 74 Report #: [id number] ����������������������������������������������������������������� [id number] THIS REPORT FOR: //name// [facility] ED Test Date: 2019-02-20 Test Time: 02:35:49 Pat Name: SEAN ECHEVERRIA Department: Room: Gender: M Medical Practitioners: : 1970 Requested By: Linda Gordon Order Number: [id number] MD: Bill Hope Measurements Intervals [place] Rate: 68 P: 21 WI: 158 QRS: 16 QRSD: 102 T: 4 QT: 392 QTc: 417 Interpretive Statements Sinus rhythm Borderline T wave abnormalities Baseline wander in lead(s) I Compared to ECG 06/24/2018 23:33:02 No significant changes Electronically Signed On 02-20-2019 7:33:44 CDT by Bill Hope [email or web address] ��������������������������������������������� <ELECTRONICALLY SIGNED> ���������������������������������������� By: Bill Hope MD ��������������������������������������������� 02/20/19 0733 0235 0235 Bill Hope MD /ANGELLA
== END 2019-02-20 04:11 | disposition home or self-care (01) ==
LOC: ER 02:06
PROVIDERS: Student in an Organized Health Care Education/Training Program
DX: G44.209 Tension-type headache, unspecified, not intractable (principal); I10 Essential (primary) hypertension; J45.909 Unspecified asthma, uncomplicated; F32.9 Major depressive disorder, single episode, unspecified; Z87.891 Personal history of nicotine dependence

== ENCOUNTER 2019-03-18 19:20 | Emergency (ER) | payer OTHER ==
[~2019-03-18] VITALS: Ht 165.1 cm; Wt 96.2 kg
[~2019-03-18 19:20] MED LIST changes: -PROZAC 10 MG CA10 MG; +PROZAC 10 MG CA10 MG PO
[2019-03-18 22:44] LABS: HEMATOCRIT 43.6 % (42.0-52.0); HEMOGLOBIN 14.8 gm/dL (14.0-18.0); MCH 28.5 pg (26.0-34.0); MCV 83.9 fL (80.0-100.0); RBC 5.2 mil/uL (4.50-6.00); RDW 13.4 % (10.5-14.5)
[2019-03-18 22:50] LABS: URINE BILIRUBIN 1+ (Negative); URINE BLOOD NEGATIVE (Negative); URINE CLARITY CLEAR; URINE COLOR YELLOW; URINE GLUCOSE-RANDOM* NEGATIVE (Negative); URINE KETONES 2+ (Negative); URINE LEUKOCYTES-REFLEX NEGATIVE (Negative); URINE NITRITE-REFLEX NEGATIVE (Negative); URINE PROTEIN (DIPSTICK) TRACE (Negative); URINE SPECIFIC GRAVITY >= 1.030 (1.005-1.035)
[2019-03-18 22:56] LABS: AMP/METHAMP Negative (Negative); BARBITURATES Negative (Negative); BENZODIAZEPINES Negative (Negative); COCAINE Negative (Negative); METHADONE Negative (Negative); OPIATES Negative (Negative); PCP Negative (Negative)
[2019-03-18 23:00] LABS: ANION GAP 14 mmol/L (7-16); BUN 11 mg/dL (7-18); CALCIUM 8.8 mg/dL (8.5-10.1); CHLORIDE 101 mmol/L (98-107); CO2 25 mmol/L (21-32); CREATININE 1.2 mg/dL (0.7-1.3); GLUCOSE 90 mg/dL (74-106); SALICYLATE < 2.8 mg/dL (2.8-20.0); SODIUM 140 mmol/L (136-145)
[2019-03-18 23:02] LABS: POTASSIUM 2.9 mmol/L (3.5-5.1)
[2019-03-18] MEDS ORDERED: RISPERDAL 1 MG T1 MG PO (23:43)
[2019-03-18] MEDS ORDERED: KAPSPARGO SPRIN25 MG PO (23:45)
[2019-03-18] MEDS ORDERED: PRILOSEC OTC20 MG PO (23:46)
[2019-03-19] MEDS ORDERED: PROZAC20 MG PO (09:03)
[2019-03-19 09:14] LABS: CALCIUM 8.4 mg/dL (8.5-10.1); CREATININE 1.2 mg/dL (0.7-1.3); POTASSIUM 3.5 mmol/L (3.5-5.1)
[2019-03-20 13:12] VITALS: BP 134/101
== END 2019-03-20 13:12 | disposition home or self-care (01) ==
LOC: ER 19:20
PROVIDERS: Emergency Medicine
DX: F32.9 Major depressive disorder, single episode, unspecified (principal)

== ENCOUNTER 2019-06-03 20:41 | Emergency (ER) | payer OTHER ==
[~2019-06-03] VITALS: Ht 165.1 cm; Wt 99.8 kg
[~2019-06-03 20:41] MED LIST changes: +KAPSPARGO SPRIN25 MG PO; +PRILOSEC OTC20 MG PO; +PROZAC20 MG PO; +RISPERDAL 1 MG T1 MG PO
[2019-06-03] MEDS ORDERED: NAPROSYN500 MG PO (22:56)
[2019-06-03] MEDS ORDERED: NORFLEX100 MG PO (22:56)
[2019-06-04 00:25] VITALS: BP 145/105
== END 2019-06-04 00:26 | disposition home or self-care (01) ==
LOC: ER 20:41
DX: M43.6 Torticollis (principal); G44.209 Tension-type headache, unspecified, not intractable; D17.9 Benign lipomatous neoplasm, unspecified; I10 Essential (primary) hypertension; J45.909 Unspecified asthma, uncomplicated; F32.9 Major depressive disorder, single episode, unspecified; Z90.49 Acquired absence of other specified parts of digestive tract; Z87.891 Personal history of nicotine dependence

== ENCOUNTER 2019-07-07 23:43 | Emergency (ER) | payer OTHER ==
[~2019-07-07] VITALS: Ht 165.1 cm; Wt 96.2 kg
[~2019-07-07 23:43] MED LIST changes: +NORFLEX100 MG PO
[2019-07-08 02:06] LABS: HEMATOCRIT 41.5 % (42.0-52.0); HEMOGLOBIN 13.9 gm/dL (14.0-18.0); MCH 28.6 pg (26.0-34.0); MCHC 33.5 g/dL (28.0-37.0); MCV 85.4 fL (80.0-100.0); RBC 4.86 mil/uL (4.50-6.00); RDW 13.4 % (10.5-14.5); WBC 6.4 thou/uL (4.0-11.0)
[2019-07-08 02:14] LABS: CALCIUM 8.7 mg/dL (8.5-10.1); CREATININE 1.1 mg/dL (0.7-1.3); POTASSIUM 3.5 mmol/L (3.5-5.1)
[2019-07-08 05:05] VITALS: BP 163/108
== END 2019-07-08 05:14 | disposition home or self-care (01) ==
LOC: ER 23:43
PROVIDERS: Emergency Medicine
DX: M54.2 Cervicalgia (principal); R51 Headache; I10 Essential (primary) hypertension; J45.909 Unspecified asthma, uncomplicated; F32.9 Major depressive disorder, single episode, unspecified; Z90.49 Acquired absence of other specified parts of digestive tract; Z87.891 Personal history of nicotine dependence

== ENCOUNTER 2019-09-16 04:05 | Emergency (ER) | payer OTHER ==
[~2019-09-16] VITALS: Ht 165.1 cm; Wt 96.2 kg
[2019-09-16] MEDS ORDERED: CLONAZEPAM 0.50.5 M1 PO (04:27)
[2019-09-16 04:54] LABS: ABSOLUTE NEUTROPHILS 3.8 thou/uL (1.4-8.2); BASOPHILS 0.7 % (0.0-2.0); EOSINOPHILS 1.4 % (0.0-3.0); HEMATOCRIT 42.6 % (42.0-52.0); MCH 28.5 pg (26.0-34.0); MCHC 32.9 g/dL (28.0-37.0); MCV 86.7 fL (80.0-100.0); MONOCYTES 8.1 % (1.0-8.0); PLATELET COUNT 235 thou/uL (150-400); POLYS 58.8 % (36.0-66.0); RBC 4.91 mil/uL (4.50-6.00); RDW 13.6 % (10.5-14.5); WBC 6.5 thou/uL (4.0-11.0)
[2019-09-16 04:57] LABS: ANION GAP 7 mmol/L (7-16); BUN 11 mg/dL (7-18); CALCIUM 8.5 mg/dL (8.5-10.1); CHLORIDE 103 mmol/L (98-107); CO2 29 mmol/L (21-32); GLUCOSE 129 mg/dL (74-106); POTASSIUM 3.2 mmol/L (3.5-5.1); SODIUM 139 mmol/L (136-145)
[2019-09-16 05:07] LABS: ALBUMIN 3.6 g/dL (3.4-5.0); SGOT 11 U/L (15-37); SGPT 21 U/L (30-65); TOTAL BILIRUBIN 0.3 mg/dL (<0.1-1.0); TOTAL PROTEIN 7.5 g/dL (6.4-8.2); TROPONIN-I <0.06 ng/mL (<0.06)
[2019-09-16 06:55] VITALS: BP 153/107
--- NOTE | 2019-09-19 14:52 | EKG ---
[place] [address] [facility] [place] [address] ELECTROCARDIOGRAM REPORT Name: DARLYN ECHEVERRIANE Room #: DEP Sunni#: [id number] Admission: 09/16/19 Attend Phys: Discharge: 09/16/19 Date of : 74 Report #: [id number] THIS REPORT FOR: //name// [facility] ED Test Date: 2019-09-16 Test Time: 04:29:23 Pat Name: SEAN ECHEVERRIA Department: Room: Gender: Shortage Worker: : 1970 Requested By: Leo Griffin Order Number: [id number] MD: Bill Hope Measurements Intervals [place] Rate: 75 P: 8 MD: 151 QRS: 10 QRSD: 101 T: -15 QT: 370 QTc: 414 Interpretive Statements Sinus rhythm Borderline T abnormalities, inferior leads Baseline wander in lead(s) I Compared to ECG 02/20/2019 02:35:49 No significant changes Electronically Signed On 09-19-2019 14:51:52 HARDBOARD COATING MACHINE OPERATOR by Bill Hope [email or web address] <ELECTRONICALLY SIGNED> By: Bill Hope MD 09/19/19 1451 0429 0429 Bill Hope MD /ANGELLA
== END 2019-09-16 06:56 | disposition home or self-care (01) ==
LOC: ER 04:05
PROVIDERS: Emergency Medicine
DX: R51 Headache (principal); R55 Syncope and collapse; I10 Essential (primary) hypertension; J45.909 Unspecified asthma, uncomplicated; Z90.49 Acquired absence of other specified parts of digestive tract; Z87.891 Personal history of nicotine dependence

== ENCOUNTER 2019-10-20 22:42 | Emergency (ER) | payer OTHER ==
[~2019-10-20] VITALS: Ht 172.7 cm; Wt 90.7 kg
[~2019-10-20 22:42] MED LIST changes: +CLONAZEPAM 0.50.5 M1 PO
[2019-10-20 23:38] LABS: HEMATOCRIT 46.2 % (42.0-52.0); HEMOGLOBIN 15.2 gm/dL (14.0-18.0); MCH 28.2 pg (26.0-34.0); MCHC 32.9 g/dL (28.0-37.0); MCV 85.8 fL (80.0-100.0); RBC 5.39 mil/uL (4.50-6.00); RDW 13.3 % (10.5-14.5); WBC 6.3 thou/uL (4.0-11.0)
[2019-10-20 23:44] LABS: ANION GAP 8 mmol/L (7-16); BUN 10 mg/dL (7-18); CALCIUM 8.9 mg/dL (8.5-10.1); CHLORIDE 99 mmol/L (98-107); CO2 28 mmol/L (21-32); CREATININE 1.2 mg/dL (0.7-1.3); GLUCOSE 109 mg/dL (74-106); SODIUM 135 mmol/L (136-145)
[2019-10-20 23:56] LABS: ALBUMIN 4.2 g/dL (3.4-5.0); DIRECT BILIRUBIN 0.2 mg/dL (<0.1-0.2); SGOT 22 U/L (15-37); SGPT 36 U/L (30-65); TOTAL BILIRUBIN 0.8 mg/dL (<0.1-1.0); TOTAL PROTEIN 8.6 g/dL (6.4-8.2)
[2019-10-21] LABS: SALICYLATE < 2.8 mg/dL (2.8-20.0)
--- NOTE | 2019-10-21 08:01 | EKG ---
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
[2019-10-21 09:25] LABS: AMP/METHAMP Negative (Negative); BARBITURATES Negative (Negative); BENZODIAZEPINES Negative (Negative); COCAINE Negative (Negative); METHADONE Negative (Negative); OPIATES Negative (Negative); PCP Negative (Negative)
[2019-10-21 20:23] VITALS: BP 152/107
== END 2019-10-21 20:24 | disposition home or self-care (01) ==
LOC: ER 22:42
PROVIDERS: Emergency Medicine Emergency Medical Services
DX: T43.222A Poisoning by selective serotonin reuptake inhibitors, intentional self-harm, initial encounter (principal); F32.9 Major depressive disorder, single episode, unspecified; F29 Unspecified psychosis not due to a substance or known physiological condition; I10 Essential (primary) hypertension; J45.909 Unspecified asthma, uncomplicated; Z90.49 Acquired absence of other specified parts of digestive tract; Z87.891 Personal history of nicotine dependence; Y92.89 Other specified places as the place of occurrence of the external cause

== ENCOUNTER 2020-12-14 15:11 | Emergency (ER) | payer OTHER ==
[~2020-12-14] VITALS: Ht 154.9 cm; Wt 72.6 kg
[2020-12-14] MEDS ORDERED: IBUPROFEN 800800 MG PO (17:51)
[2020-12-14 18:49] VITALS: BP 122/78
== END 2020-12-14 18:50 | disposition home or self-care (01) ==
LOC: ER 15:11
DX: M25.512 Pain in left shoulder (principal); M77.8 Other enthesopathies, not elsewhere classified; I10 Essential (primary) hypertension; J45.909 Unspecified asthma, uncomplicated; Z90.49 Acquired absence of other specified parts of digestive tract; Z87.891 Personal history of nicotine dependence; Z79.899 Other long term (current) drug therapy